=== PATIENT | female | born 1960 | race Caucasian/White ===

== ENCOUNTER 2022-09-15 07:56 | Day surgery (SDC) | payer OTHER ==
[2022-09-14 12:50] LABS: COVID AG,FIA SOURCE NASOPHARYNGEAL
[~2022-09-15] VITALS: Ht 162.6 cm; Wt 61.8 kg
[~2022-09-15 07:56] MED LIST: AMLO10TA55 PO; BEMP1TAB PO; CARV25 PO; CHOL25TA4 PO; CLOP75TA60 PO; EMPA25TA3 PO; EVOL140P3 SQ; FLUT1BLS12 IH; FURO40TA5 PO; GLIP10TA9 PO; INSU100I40 SQ; INSU100I68 SQ; ISOS30TA92 PO; KETO5DRO6 OU; METF-446 PO; NITR0.4T50 SL; OMEP20TA20 PO; PIOG15TA6 PO; ROSU20TA73 PO; SACU1TAB4 PO; SODIUM CHLORIDE 0.9% 1,000 ML ONE
[2022-09-15] MEDS ORDERED: MIDAZOLAM HCL 2 MG/2 ML VIAL ONE ×3 (08:42→10:35)
[2022-09-15] MEDS ORDERED: FentaNYL CITRATE PF 100 MCG/2 ML VIAL ONE (08:43)
[2022-09-15 08:51] LABS: GLUCOMETER DEV NAME(LOC) SDS.; GLUCOSE,POINT OF CARE 207 MG/DL (70-110)
[2022-09-15] MEDS ORDERED: SODIUM CHLORIDE 0.9% 1,000 ML IV ONE (09:15)
== END 2022-09-15 13:10 | disposition home or self-care (01) ==
LOC: SURGERY 07:56
PROVIDERS: ATTEND Internal Medicine Gastroenterology
DX: K64.0 First degree hemorrhoids (principal); K31.89 Other diseases of stomach and duodenum; I50.9 Heart failure, unspecified; K21.9 Gastro-esophageal reflux disease without esophagitis; E11.9 Type 2 diabetes mellitus without complications; I11.0 Hypertensive heart disease with heart failure; Z79.899 Other long term (current) drug therapy; Z98.890 Other specified postprocedural states; Z20.822 Contact with and (suspected) exposure to COVID-19
CPT/HCPCS: 87426; 93005; 43239; 45378; 82962; 88305; 88312; 88313; C9803; C1769; J3010; J2250; J7030